=== PATIENT | male | born 1990 | race Caucasian/White ===

== ENCOUNTER 2018-12-21 15:41 | Day surgery (SDC) | payer BC, MEDICAID ==
[2018-12-29] MEDS ORDERED: LACTATED RINGER'S 1,000 ML IV (14:00)
[2018-12-29] MEDS ORDERED: PROPOFOL 20 ML ×2 (14:56→15:22)
[2018-12-29] MEDS ORDERED: MIDAZOLAM 1 MG/ML 2 ML INJ ×2 (14:56→15:21)
[2018-12-29] MEDS ORDERED: LIDOCAINE 2% (SDV) 5 ML INJ (14:56)
[2018-12-29] MEDS ORDERED: MEPERIDINE 25 MG INJ IV (15:00)
[2018-12-29] MEDS ORDERED: FENTAnyl 50 MCG/ML VIAL IV ×3 (15:00)
[2018-12-29] MEDS ORDERED: OXYCODONE/ACETAMINOPHEN (5/325) TAB PO (15:00)
[2018-12-29] MEDS ORDERED: ROPIVACAINE 0.5 % 30 ML VIAL (15:00)
[2018-12-29] MEDS ORDERED: HYDROmorphONE 1 MG/5 ML IV SYRINGE IV ×2 (15:00)
[2018-12-29] MEDS ORDERED: PROCHLORPERAZINE 10 MG INJ IV (15:00)
[2018-12-29] MEDS ORDERED: DIPHENHYDRAMINE 50 MG INJ IV (15:00)
[2018-12-29] MEDS ORDERED: FENTAnyl 50 MCG/ML VIAL (15:16)
[2018-12-29] MEDS ORDERED: DEXAMETHASONE 4 MG/ML 5 ML INJ (15:23)
[2018-12-29] MEDS ORDERED: ONDANSETRON 4 MG INJ (15:23)
[2018-12-29] MEDS ORDERED: CEFAZOLIN 1 GM INJ (15:23)
[2018-12-29] MEDS ORDERED: FAMOTIDINE 20 MG INJ (15:23)
[2018-12-29] MEDS ORDERED: HYDROmorphONE 2 MG/ML SYG (15:36)
[2018-12-29] MEDS: POLYMYXIN/BACITRACIN 1L IRRIG (15:44)
[2018-12-29] MEDS: ONDANSETRON 4 MG INJ IV (17:02)
[2018-12-29] MEDS: HYDROmorphONE 1 MG/5 ML IV SYRINGE IV (17:02)
== END 2018-12-29 17:54 | disposition home or self-care (01) ==
LOC: SDS 15:41
DX: S62.324D Displaced fracture of shaft of fourth metacarpal bone, right hand, subsequent encounter for fracture with routine healing (principal); X58.XXXD Exposure to other specified factors, subsequent encounter
CPT/HCPCS: 26615; 73130-RT